=== PATIENT | male | born 1935 | race Caucasian/White ===

== ENCOUNTER → 2016-06-22 | Outpatient (CLI) | payer MEDICARE, BC ==
[~2016-06-22] MED LIST: CELEBREX200 MG PO; LOTENSIN20 MG PO; NEURONTIN100 MG PO; NORVASC5 MG PO; TRAMADOL ER PO; ULTRAM50 MG PO
== END | disposition short-term general hospital (02) ==
LOC: CLPAIN 10:39
DX: M54.5 Low back pain (principal); M54.6 Pain in thoracic spine

== ENCOUNTER → 2016-08-10 | Outpatient (CLI) | payer MEDICARE, BC | END | disposition short-term general hospital (02) | LOC: CLPAIN 09:16 | DX: M47.27 Other spondylosis with radiculopathy, lumbosacral region (principal); M70.61 Trochanteric bursitis, right hip; M54.2 Cervicalgia | CPT/HCPCS: J1030 ==